=== PATIENT | male | born 1975 | race Caucasian/White ===

== ENCOUNTER 2024-05-14 12:54 | Outpatient (CLI) | payer BC | END 2024-05-14 12:55 | disposition home or self-care (01) | LOC: CSHLAB 12:54 | PROVIDERS: ATTEND Otolaryngology Plastic Surgery within the Head & Neck | DX: Z01.818 Encounter for other preprocedural examination (principal); J34.2 Deviated nasal septum; J34.3 Hypertrophy of nasal turbinates; K13.79 Other lesions of oral mucosa | CPT/HCPCS: 93005; 93010 ==

== ENCOUNTER 2024-05-19 07:17 | Day surgery (SDC) | payer BC ==
[2024-05-14 13:23] VITALS: BMI 30.8
[2024-05-19] MEDS ORDERED: AFRIN NASAL MIST 15 ML BOT ONE ×2 (08:11→08:49)
[2024-05-19] MEDS ORDERED: Lidocaine 1% w/Epinephrine 1:200K 30 ML VIAL ONE (08:49)
[2024-05-19] MEDS ORDERED: Bacitracin 1 PK ONE (08:49)
[2024-05-19] MEDS ORDERED: PROPOFOL 20 ML ONE (08:59)
[2024-05-19] MEDS ORDERED: Dexamethasone 4 mg/ml Vial ONE ×2 (09:00→09:21)
[2024-05-19] MEDS ORDERED: Lidocaine 1% PF 5 ML VIAL ONE (09:00)
[2024-05-19] MEDS ORDERED: Rocuronium Bromide 10 MG/ML (10ML VIAL) ONE (09:00)
[2024-05-19] MEDS ORDERED: Ondansetron PF 4 MG/2 ML Vial ONE (09:00)
[2024-05-19] MEDS ORDERED: Fentanyl 100 MCG/2 ML VIAL ONE ×2 (09:09→10:05)
[2024-05-19] MEDS ORDERED: methylPREDNISolone Acetate 40 mg/ml Vial ONE (09:19)
[2024-05-19] MEDS ORDERED: Ferric Subsulfate 8 ML TOPICAL SOLN ONE (09:23)
[2024-05-19] MEDS ORDERED: Oxymetazoline HCl 0.05% ( 15 ML ) ONE (09:36)
[2024-05-19] MEDS ORDERED: SUGAMMADEX SODIUM 200 MG/2 ML VIAL ONE (09:49)
[2024-05-19] MEDS ORDERED: Hydrocodone-Acetamin 15 ML UDCUP ONE (10:50)
== END 2024-05-19 11:15 | disposition home or self-care (01) ==
LOC: CSHSDC 07:17
PROVIDERS: ATTEND Otolaryngology Plastic Surgery within the Head & Neck
PROC: 09SM0ZZ Reposition Nasal Septum, Open Approach (ICD-10-PCS; principal; 2024-05-19)
PROC: 0CTPXZZ Resection of Tonsils, External Approach (ICD-10-PCS; principal; 2024-05-19)
PROC: 095L0ZZ Destruction of Nasal Turbinate, Open Approach (ICD-10-PCS; principal; 2024-05-19)
DX: J34.2 Deviated nasal septum (principal); J34.3 Hypertrophy of nasal turbinates; J35.3 Hypertrophy of tonsils with hypertrophy of adenoids; J30.9 Allergic rhinitis, unspecified; K13.79 Other lesions of oral mucosa; K21.9 Gastro-esophageal reflux disease without esophagitis; G47.30 Sleep apnea, unspecified; I10 Essential (primary) hypertension; E78.5 Hyperlipidemia, unspecified; E66.9 Obesity, unspecified; Z68.30 Body mass index [BMI] 30.0-30.9, adult; Z90.89 Acquired absence of other organs; Z79.51 Long term (current) use of inhaled steroids; Z79.899 Other long term (current) drug therapy
CPT/HCPCS: 88304; J1010; J1100; J2405; J2704; J3010